=== PATIENT | female | born 2000 | race African-American/Black ===

== ENCOUNTER 2018-06-15 04:38 | Inpatient (IN) ==
[2018-06-15] MEDS ORDERED: Acetaminophen 325 MG Tablet PO PRN (10:29)
[2018-06-15] MEDS ORDERED: Aluminum/Magnesium/Simethacone Susp 30 ML UDC PO PRN (10:29)
[2018-06-15 10:47] VITALS: BP 115/76; PULSE 60; RESP 18; TEMP 97.7; O2SAT 95
--- NOTE | 2018-06-15 14:38 | P.HPPSY ---
Provisional Diagnosis Admission Date: June 15, 2018 09:36 [place] Adjustment disorder with mixed disturbance of emotion and conduct, alcohol abuse Competence Certification of Person's Competence To Provide Express and Informed Consent I have personally examined Fior Soto, a person being served at [facility] on, June 15, 2018 1429. Express and informed consent means consent voluntarily given in writing, by a competent person, after sufficient explanation and disclosure of the subject matter involved to enable the person to make a knowing and willful decision without any element of force, fraud, deceit, duress, or other form of constraint or coercion. This person is 18 years of age or older, is not now known to be incompetent to consent to treatment with a guardian advocate, and does not have a health care surrogate or proxy currently making medical treatment decisions. I have found this person to be one of the following: [xxxx] Competent to provide express and informed consent, as defined above, for voluntary admission to this facility and is competent to provide express and informed consent for treatment. He/she has the consistent capacity to make well reasoned, willful, and knowing decisions concerning his or her medical or mental health treatment. The person fully and consistently understands the purpose of the admission for examination/placement and is fully capable of personally exercising all rights assured under [place] Incompetent to provide express and informed consent to voluntary admission, and this is incompetent to provide express and informed consent to treatment. The person must be transferred to involuntary status and a petition for a guardian advocate filed with the Circuit Court. [] Refusing to provide express and informed consent to voluntary admission but is competent to provide express and informed consent for treatment. The person must be discharged or transferred to involuntary status. Form shall be completed within 24 hours of a person's arrival at the receiving facility and filed in the clinical record of each person: 1. Admitted on a voluntary basis 2. Permitted to provide express and informed consent to his/her own treatment 3. Allowed to transfer from involuntary to voluntary status 4. Prior to permitting a person to consent to his or her own treatment after having been previously found incompetent to consent to treatment. History of Present Illness Capacity: Has capacity History of Present Illness: Patient is a 18-year-old -[place] female comes here under Ansari act by the [facility]'s office dated 06/14/2018 at 2100 hrs. that document reviewed essentially states to me she informed me that she does not want to live anymore after receiving news from her doctor that she has oral herpes and it can be contagious if an outbreak occurs. She feels she will not be able to kiss her children if she is able to have any and she believes there is nothing else to live for. Patient consumed a large amount of niacin prednisone and a pint of [place] alcohol. Patient seen and screened at [facility] blood alcohol level of 57- urine toxicology patient medically cleared and transferred here under the Ansari act. Patient is seen in her room with nurse Jerry present throughout session he is alert oriented -[place] female appears her stated age she is calm cooperative with me. Patient states she did go to her doctor. That she is fastidious to is somewhat obsessive attitude with herself. She did have these fleeting thoughts that upset her. She does live with the mother there is just the 2 of them in the house she took the alcohol the pills in a gesture perhaps with some vague suicidal ideation at the time. Patient denies any prior psychiatric contact hospitalization her psychotropic medication she denies any prior alcohol or drug use. 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 She denies any physical or sexual abuse. Denies any history of mental health issues in her family. She states she has dated boys in the past has been sexually active with protection. Patient does regret her impulsive gesture she realizes the impulsivity which she also realizes that she might benefit from some counseling to help prevent these types of gestures in the future. I have also talked with patient's mother whose name is Ese at [phone] also feels comfortable with her daughter returning home. She verifies the above history. She is willing to take responsibility for her daughter. She will work with her to get appropriate counseling in the local area. Thus patient will be discharged today to her mother to follow-up with counseling in their local area they be no Rx by me - Inpatient Certification I certify that the inpatient services were ordered in accordance with Medicare regulations governing the order. This includes certification that hospital inpatient services are reasonable and necessary and in the case of services not specified as inpatient-only under 42 CFR 419.22(n), that they are appropriately provided as inpatient services in accordance to with the 2-midnight benchmark under 43 CFR 412.3(e) I certify that inpatient psychiatric hospital services are medically necessary. Evaluation and treatment and/or diagnostic testing are expected to improve the patient's condition. The patient needs on a daily basis, active treatment furnished directly by or requiring the supervision of inpatient psychiatric facility personnel. Estimated Total Length of Stay (Days): 1 Plans for Post Hospital Care: Home Review of Systems All other systems reviewed negative except as stated in HPI PMFSH - History History Provided By: Patient, Family Member - Medical / Surgical Hx Neg / Unobtainable Medical Problems Denied: Yes Surgical History: No Previous Surgery - Medical History Medical History: Medical History (Last Reviewed 06/15/18 @ 14:35 by Shravan Dial MD) Eczema of both hands Oral herpes - Social History I have reviewed the patient's Social History: Yes - Tobacco History Second Hand Smoke Exposure: No Tobacco Use In Past 30 Days: No Smoking Status: Never smoker - Alcohol History How Often Do You Have a Drink Containing Alcohol: Monthly or less - Substance Use History Substance History: No History of Abuse - Travel History Recent Travel in the [place] Within the Last 8 Weeks: No Recent Travel Out of the Country Within the Last 8 Weeks: No - Immunization History Tetanus Immunization: <5 Years Tetanus Immunization Year if Known: 2017 Hx Influenza Vaccine This Season: Yes Quality Measures - Psychiatric History Psychological trauma history: Patient denies Violence risk to others in the last 6 months: Low Violence risk to self in the last 6 months: Low - Substance Abuse History Drug or alcohol use in the past 12 months: Patient overdose alcohol suicide gesture along with medication - Patient Strengths Patient's strengths (minimum of 2): Patient verbal able [facility] has supportive family Medications and Allergies Active Medications: Active Medications Acetaminophen (Tylenol) 650 mg PO Q4H PRN PRN Reason: Pain 1-5 or Temp >101F Al Hydrox/Mg Hydrox/Simethicone (Mag-Al Plus Susp Liq) 30 ml PO Q6H PRN PRN Reason: DYSPEPSIA Al Hydroxide/Mg Hydroxide (Milk Of Magnesia Liq) 30 ml PO Q12H PRN PRN Reason: Mild Constipation Diphenhydramine HCl (Benadryl) 50 mg PO Q6H PRN PRN Reason: For mild anxiety and/or EPS Diphenhydramine HCl (Benadryl) 50 mg PO HS PRN PRN Reason: INSOMNIA Diphenhydramine HCl (Benadryl Inj) 50 mg IM Q6H PRN PRN Reason: For mild anxiety and/or EPS Diphenhydramine HCl (Benadryl Inj) 50 mg IM HS PRN PRN Reason: INSOMNIA Hydroxyzine HCl (Atarax) 50 mg PO Q6H PRN PRN Reason: ANXIETY Nicotine (Habitrol 21 Mg Patch.24 Hr) 1 patch T-DERMAL DAILY JANET Allergies Allergy/AdvReac Type Severity Reaction Status Date / Time peanut [peanuts] Allergy Severe Anaphylaxis Verified 06/15/18 10:09 Exam Vital signs: Vital Signs 06/15/18 10:46 Temperature 97.7 F Pulse Rate 60 Respiratory Rate 18 Blood Pressure 115/76 Pulse Oximetry 95 Intake & Output 06/14/18 06/15/18 06/15/18 18:59 06:59 18:59 Weight 83.915 kg Other: Weight On Admission 83.915 kg Narrative: Patient lying quietly in her room in bed she is in no acute distress, patient no respiratory distress, no complaints of chest pain or abdominal pain. Patient moving all 4 extremities without difficulty Mental Status Examination Appearance: Appropriate Consciousness: Alert Orientation: x4 Motor Activity: Normal gait Speech: Unremarkable Language: Adequate Fund of Knowledge: Adequate Attention and Concentration: Adequate Memory: Unremarkable Mood: Other (Euthymic) Affect: Other (Good range and intensity) Thought Process & Associations: Intact, Logical Thought Content: Appropriate Hallucination Type: None Delusion Type: None Suicidal Ideation: No Suicidal Plan: No Suicidal Intention: No Homicidal Ideation: No Homicidal Plan: No Homicidal Intention: No Insight: Adequate Judgment: Adequate Assessment and Plan - Assessment (1) Adjustment disorder with mixed disturbance of emotions and conduct Code(s): F43.25 - Adjustment disorder with mixed disturbance of emotions and conduct Status: Acute (2) Alcohol abuse Code(s): F10.10 - Alcohol abuse, uncomplicated Status: Acute - Plan Plan: Estimated LOS: [] days Patient does not meet Ansari criteria will lift Ansari act is okay by psych for discharge. No Rx by me. We have discussed this with patient's mother who agrees. Patient and mother will be coming to pick her up. They to find counseling locally in the area of [facility] Justification for Continued Inpatient Stay: Patient to be discharged to her mother Discharge Planning: Home Request Healthcare Surrogate/Guardian Advocate?: No
--- NOTE | 2018-06-15 14:43 | P.DSPSY ---
Psychiatry Discharge Summary Inpatient Psychiatric care?: Yes Advance Directives: No Mental Health Advance Directive: No Health Care Proxy: No - Admission Admission Date: June 15, 2018 09:36 - Admission Diagnosis (1) Adjustment disorder with mixed disturbance of emotions and conduct Code(s): F43.25 - Adjustment disorder with mixed disturbance of emotions and conduct (2) Alcohol abuse Code(s): F10.10 - Alcohol abuse, uncomplicated Brief History: Patient is a 18-year-old -[place] female comes here under Ansari act by the [facility]'s office dated 06/14/2018 at 2100 hrs. that document reviewed essentially states to me she informed me that she does not want to live anymore after receiving news from her doctor that she has oral herpes and it can be contagious if an outbreak occurs. She feels she will not be able to kiss her children if she is able to have any and she believes there is nothing else to live for. Patient consumed a large amount of niacin prednisone and a pint of [place] alcohol. Patient seen and screened at [facility] blood alcohol level of 57- urine toxicology patient medically cleared and transferred here under the Ansari act. Patient is seen in her room with nurse Edwards present throughout session he is alert oriented -[place] female appears her stated age she is calm cooperative with me. Patient states she did go to her doctor. That she is fastidious to is somewhat obsessive attitude with herself. She did have these fleeting thoughts that upset her. She does live with the mother there is just the 2 of them in the house she took the alcohol the pills in a gesture perhaps with some vague suicidal ideation at the time. Patient denies any prior psychiatric contact hospitalization her psychotropic medication she denies any prior alcohol or drug use. 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 She denies any physical or sexual abuse. Denies any history of mental health issues in her family. She states she has dated boys in the past has been sexually active with protection. Patient does regret her impulsive gesture she realizes the impulsivity which she also realizes that she might benefit from some counseling to help prevent these types of gestures in the future. I have also talked with patient's mother whose name is Ese at [phone] also feels comfortable with her daughter returning home. She verifies the above history. She is willing to take responsibility for her daughter. She will work with her to get appropriate counseling in the local area. Thus patient will be discharged today to her mother to follow-up with counseling in their local area they be no Rx by me Tobacco Use In Past 30 Days: No How Often Do You Have a Drink Containing Alcohol: Monthly or less Hospital Course: Please see dictation under brief history. Patient does not meet Ansari criteria lift Ansari act patient to be discharged to her mother. Patient denies suicidality or homicidality voices or visions. Mother acknowledges willingness to have daughter come home with her also. No Rx by me. Will refer patient to counseling in the community - Discharge Discharge Date: 06/15/18 - Discharge Diagnosis (1) Adjustment disorder with mixed disturbance of emotions and conduct Diagnosis: Principal Code(s): F43.25 - Adjustment disorder with mixed disturbance of emotions and conduct Status: Acute (2) Alcohol abuse Diagnosis: Secondary Code(s): F10.10 - Alcohol abuse, uncomplicated Status: Acute Discharge Disposition: Home - Discharge Instructions Discharge Diet: Regular Diet Activities You Can Perform: Regular- No Restrictions - Discharge Time > 30 minutes Mental Status Examination Appearance: Appropriate Consciousness: Alert Orientation: x4 Motor Activity: Normal gait Speech: Unremarkable Language: Adequate Fund of Knowledge: Adequate Attention and Concentration: Adequate Memory: Unremarkable Mood: Other (Euthymic) Affect: Other (Good range and intensity) Thought Process & Associations: Intact, Logical Thought Content: Appropriate Hallucination Type: None Delusion Type: None Suicidal Ideation: No Suicidal Plan: No Suicidal Intention: No Homicidal Ideation: No Homicidal Plan: No Homicidal Intention: No Insight: Adequate Judgment: Adequate Discharge/Advance Care Plan - Results Vital Signs: Last Vital Signs Temp 97.7 F 06/15/18 10:46 Pulse 60 06/15/18 10:46 Resp 18 06/15/18 10:46 BP 115/76 06/15/18 10:46 Pulse Ox 95 06/15/18 10:46 Lab Results: Urine toxicology negative blood alcohol level of 57 at [facility] Summary of Procedures: None done Pending Results: None - Medications Number of antipsychotic medications at discharge: 0 - Discharge Care Plan Goals to Promote Your Health: * To prevent worsening of your condition and complications * To maintain your health at the optimal level Directions to Meet Your Goals: Take your medications as prescribed Follow your dietary instruction Follow activity as directed Keep your appointments as scheduled Take your immunizations and boosters as scheduled If your symptoms worsen call your PCP, if no PCP go to Urgent Care Center or Emergency Room For 10/01 questions related to your inpatient stay or results of tests pending at discharge, please contact Dr. Shravan Dial MD at Smoking is Dangerous to Your Health. Avoid second hand smoking
== END 2018-06-15 17:45 | disposition home or self-care (01) | DRG 882 ==
LOC: H260 09:36
PROVIDERS: ADMIT Psychiatry & Neurology Psychiatry; ATTEND Psychiatry & Neurology Psychiatry